=== PATIENT | female | born 1980 | race Caucasian/White ===

== ENCOUNTER 2024-02-14 10:20 | Outpatient (CLI) | payer OTHER | END 2024-02-14 10:39 | disposition home or self-care (01) | LOC: NST 10:20 | PROVIDERS: ATTEND Obstetrics & Gynecology Maternal & Fetal Medicine | DX: Z34.83 Encounter for supervision of other normal pregnancy, third trimester (principal) ==

== ENCOUNTER 2024-03-14 22:14 | Inpatient (IN) | payer OTHER ==
[~2024-03-14] VITALS: Ht 152.4 cm; Wt 2.3 kg
[2024-03-14 22:49] VITALS: BP 114/73
[2024-03-14] MEDS ORDERED: CITRIC ACID/SODIUM CITRATE 30 ML BLIST.PACK PO SCH (23:45)
[2024-03-14] MEDS ORDERED: CEFAZOLIN SODIUM 1,000 MG VIAL IV SCH (23:45)
[2024-03-14] MEDS ORDERED: PRENATAL + DHA1 EAC1 PO (23:47)
[2024-03-14] MEDS ORDERED: ZYRTEC10 M3 PO (23:47)
[2024-03-14] MEDS ORDERED: FLONASE NIGHTT2.5 MG PO (23:47)
[2024-03-14] MEDS ORDERED: FISH OIL 1,0001 EAC1 PO (23:47)
[2024-03-15 00:21] LABS: HEMATOCRIT 36.6 % (36.0-45.00); HEMOGLOBIN 12.5 g/dL (12.0-15.00); MEAN CELL VOLUME 92.3 fL (80.00-100.00); MEAN CORPUSCULAR HEMOGLOBIN 31.5 pg (27.00-32.0); MEAN CORPUSCULAR HGB CONC 34.1 g/dl (32.0-36.0); PLATELET COUNT 189 K/uL (150-450); RED BLOOD COUNT 3.97 M/uL (4.00-6.00); RED CELL DISTRIBUTION WIDTH 13.6 % (11.5-14.5)
[2024-03-15 00:35] LABS: INR < 0.93; PROTHROMBIN TIME 9.8 SECONDS (9.0-11.5)
[2024-03-15 00:41] LABS: ALBUMIN 2.6 gm/dL (3.4-5.0); BILIRUBIN TOTAL 0.26 mg/dL (0.3-1.2); CREATININE SERUM 0.72 mg/dL (0.55-1.02); GFR 89.26; GLOBULINA 3.7 G/DL (2.4-3.5); POTASSIUM 4.57 mEq/L (3.5-5.1); TOTAL PROTEIN 6.3 gm/dL (6.4-8.2)
[2024-03-15 02:19] LABS: URINE APPEARANCE Clear; URINE BILIRRUBIN Negative (NEGATIVE); URINE BLOOD Negative; URINE COLOR Yellow; URINE GLUCOSE Negative (NEGATIVE); URINE KETONE Negative (NEGATIVE); URINE LEUKOCYTE Negative; URINE NITRATE Negative; URINE PROTEIN Negative (NEGATIVE); URINE UROBILINOGEN 0.2 E.U./dl
[2024-03-15 02:20] LABS: URINE BACTERIA 27.7 uL (0.0-1933); URINE EPITHELIAL CELLS 3.2 uL (0.0-38.8); URINE WBC 2.7 uL (0.0-23.2)
[2024-03-15 03:19] VITALS: BP 110/71
[2024-03-15] MEDS ORDERED: CITRIC ACID/SODIUM CITRATE 30 ML BLIST.PACK PO SCH (06:45)
[2024-03-15] MEDS ORDERED: RINGERS SOLUTION,LACTATED 1,000 ML IV SCH ×2 (06:45→14:00)
[2024-03-15] MEDS ORDERED: CEFAZOLIN SODIUM 1,000 MG VIAL IV SCH (06:45)
[2024-03-15 07:24] VITALS: BP 116/77
[2024-03-15 07:33] VITALS: BP 105/68
[2024-03-15 11:11] VITALS: BP 100/63
[2024-03-15] MEDS ORDERED: MORPHINE SULFATE 4 MG/ML CARTRIDGE IV PRN (13:45)
[2024-03-15] MEDS ORDERED: KETOROLAC TROMETHAMINE 30 MG VIAL IV SCH (14:00)
[2024-03-15] MEDS ORDERED: ONDANSETRON HCL 4 MG in 0.9 % SODIUM CHLORIDE 50 ML IV SCH (14:00)
[2024-03-15] MEDS ORDERED: OXYTOCIN 1,000 ML IV ONE (14:00)
[2024-03-15] MEDS ORDERED: OXYTOCIN 10 UNITS/ML VIAL IV ONE (15:00)
[2024-03-15] MEDS ORDERED: ERYTHROMYCIN BASE OPHT 1GM EACH TUBE OP ONE (15:00)
[2024-03-15] MEDS ORDERED: SIMETHICONE 125 MG CAPSULE PO SCH (17:00)
[2024-03-15] MEDS ORDERED: GABAPENTIN 300 MG CAPSULE PO SCH (17:00)
[2024-03-15] MEDS ORDERED: ACETAMINOPHEN 500 MG GEL..CAP PO SCH (18:00)
[2024-03-15 20:33] VITALS: BP 117/71
[2024-03-16] VITALS: BP 109/65
[2024-03-16 06:53] LABS: HEMATOCRIT 30.6 % (36.0-45.00); HEMOGLOBIN 10.4 g/dL (12.0-15.00); MEAN CELL VOLUME 93.8 fL (80.00-100.00); MEAN CORPUSCULAR HGB CONC 34.1 g/dl (32.0-36.0); PLATELET COUNT 147 K/uL (150-450); RED BLOOD COUNT 3.26 M/uL (4.00-6.00); RED CELL DISTRIBUTION WIDTH 13.6 % (11.5-14.5)
[2024-03-16] MEDS ORDERED: KETOROLAC TROMETHAMINE 10 MG TABLET PO SCH (08:00)
[2024-03-16] MEDS ORDERED: OxyCODONE HCL 5 MG TABLET (ROXICODONE) PO PRN (08:00)
[2024-03-16 08:36] VITALS: BP 126/73
[2024-03-16] MEDS ORDERED: DOCUSATE SODIUM 100MG CAP PO SCH (09:00)
[2024-03-16 16:39] VITALS: BP 102/69
[2024-03-17 01:46] VITALS: BP 112/75
[2024-03-17 08:45] VITALS: BP 104/64
== END 2024-03-17 13:50 | disposition home or self-care (01) | DRG 788 ==
LOC: LDR 22:14 → OB/GYN 22:14 → O/R 22:14 → OB/GYN 03-15 15:58
PROVIDERS: Obstetrics & Gynecology; ADMIT Obstetrics & Gynecology Maternal & Fetal Medicine; ATTEND Obstetrics & Gynecology Maternal & Fetal Medicine
PROC: 4A1HXCZ Monitoring of Products of Conception, Cardiac Rate, External Approach (ICD-10-PCS; 2024-03-14)
PROC: 10D00Z1 Extraction of Products of Conception, Low, Open Approach (ICD-10-PCS; principal; 2024-03-15 13:15)
DX: O32.1XX0 Maternal care for breech presentation, not applicable or unspecified (principal); O36.5930 Maternal care for other known or suspected poor fetal growth, third trimester, not applicable or unspecified; Z3A.37 37 weeks gestation of pregnancy; Z37.0 Single live birth; Z20.822 Contact with and (suspected) exposure to COVID-19